=== PATIENT | female | born 1970 | race Caucasian/White ===

== ENCOUNTER 2021-05-05 18:48 | Inpatient (IN) ==
[2021-05-05] MEDS ORDERED: 0.9 % Sodium Chloride 1,000 ML IVC ONE (19:27)
[2021-05-05 20:23] LABS: Basophils # 0.1 K/mcL (0.0-0.2); Basophils % 0.4 %; Eosinophils # 0.1 K/mcL (0.0-0.6); Eosinophils % 0.6 %; Hematocrit 49.1 % (35.3-44.9); Hemoglobin 16.7 g/dL (11.5-15.4); Immature Granulocytes % 0.2 % (0-4); Lymphocytes # 1.4 K/mcL (0.6-4.6); Lymphocytes % 8.8 %; Mean Corpuscular Hemoglobin 31.6 pg (28.0-33.3); Mean Platelet Volume 10.9 fL (9.4-12.4); Monocytes # 0.9 K/mcL (0.0-1.3); Monocytes % 5.7 %; Neutrophils # 13.6 K/mcL (1.6-8.9); Platelet Count 211 K/mcL (140-400); Red Blood Count 5.28 M/mcL (3.82-4.97); Red Cell Distribution Width 12.4 % (11.5-14.5); Segmented Neutrophils % 84.3 %; White Blood Count 16.1 K/mcL (4.3-11.1)
[2021-05-05] MEDS ORDERED: Ipratropium/Albuterol Neb 3 ML IH ONE ×2 (20:40→22:07)
[2021-05-05] MEDS ORDERED: cefTRIAXone 1,000 MG in 0.9 % Sodium Chloride Mini Bag 100 ML IVPB ONE (20:40)
[2021-05-05] MEDS ORDERED: Azithromycin 500 MG in 0.9 % Sodium Chloride 250 ML IVPB ONE (20:40)
[2021-05-05 20:41] LABS: Alanine Aminotransferase 19 Units/L (7-52); Albumin 4.1 g/dL (3.5-5.7); Albumin/Globulin Ratio 1.3 (1.1-2.2); Alkaline Phosphatase 72 Units/L (34-104); Aspartate Amino Transferase 15 Units/L (13-39); BUN/Creatinine Ratio 13 (6-26); Bilirubin,Total 0.8 mg/dL (0.3-1.0); Blood Urea Nitrogen 11 mg/dL (6-20); Calcium 9.6 mg/dL (8.6-10.3); Carbon Dioxide 27 mEq/L (23-29); Chloride 101 mEq/L (98-107); Creatine Kinase 55 Units/L (30-223); Globulin 3.2 g/dL (2.4-3.5); Glucose 132 mg/dL (70-105); Lactate Dehydrogenase 189 Units/L (140-271); Osmolality,Calculated 283 (280-300); Potassium 4.1 mEq/L (3.5-5.1); Sodium 136 mEq/L (136-145); Total Protein 7.3 g/dL (6.4-8.9); eGFR For African Americans > 60 (> 60); eGFR For Non-African Americans > 60 (> 60)
[2021-05-05] MEDS ORDERED: Iopamidol - 370 500 ML MLS IVP ONE (20:51)
[2021-05-06] MEDS ORDERED: Ondansetron ODT 4 MG TAB.RAPDIS SL PRN (00:52)
[2021-05-06] MEDS ORDERED: Iopamidol - 370 500 ML MLS IVP ONE (00:52)
[2021-05-06] MEDS ORDERED: Naloxone 0.4 MG/ML INJ IVP PRN (00:52)
[2021-05-06] MEDS ORDERED: Ondansetron 4 MG/2 ML VIAL IVP PRN (00:52)
[2021-05-06] MEDS: 0.9 % Sodium Chloride 1,000 ML IVC SCH ×2 (01:29→13:31)
[2021-05-06] MEDS ORDERED: Ipratropium/Albuterol Neb 3 ML IH ONE ×2 (02:00)
[2021-05-06] MEDS: cefTRIAXone 1,000 MG in 0.9 % Sodium Chloride Mini Bag 100 ML IVPB SCH ×2 (05:19→17:30)
[2021-05-06] MEDS ORDERED: cefTRIAXone 1,000 MG in 0.9 % Sodium Chloride Mini Bag 100 ML IVPB SCH (06:00)
[2021-05-06] MEDS ORDERED: MethylPREDNISolone 40 MG/ML VIAL IVP ONE ×2 (07:00)
[2021-05-06 08:34] LABS: Adenovirus Not Detected (Not Detect); Bordetella Pertussis Not Detected (Not Detect); Chlamydophila pneumoniae Not Detected (Not Detect); Coronavirus 229E Not Detected (Not Detect); Coronavirus HKU1 Not Detected (Not Detect); Coronavirus NL63 Not Detected (Not Detect); Coronavirus OC43 Not Detected (Not Detect); Human Metapneumovirus Not Detected (Not Detect); Human Rhinovirus/Enterovirus Not Detected (Not Detect); Influenza A Subtype 2009 H1 Not Detected (Not Detect); Influenza B Not Detected (Not Detect); Mycoplasma pneumoniae Not Detected (Not Detect); Parainfluenza Virus 1 Not Detected (Not Detect); Parainfluenza Virus 2 Not Detected (Not Detect); Parainfluenza Virus 3 Not Detected (Not Detect); Parainfluenza Virus 4 Not Detected (Not Detect); Respiratory Syncytial Virus Not Detected (Not Detect); SARS-CoV-2 Not Detected (Not Detect)
[2021-05-06 08:40] LABS: Ferritin 122 ng/mL (10-120)
[2021-05-06] MEDS: Furosemide 20 MG TABLET PO SCH (08:50)
[2021-05-06] MEDS: Loratadine 10 MG TABLET PO SCH (08:50)
[2021-05-06] MEDS: Spironolactone 25 MG TABLET PO SCH (08:50)
[2021-05-06] MEDS: Ranolazine 500 MG TAB.ER.12H PO SCH ×2 (08:50→21:03)
[2021-05-06] MEDS: Aspirin 81 MG TAB.CHEW PO SCH (08:51)
[2021-05-06] MEDS ORDERED: Azithromycin 500 MG in 0.9 % Sodium Chloride 250 ML IVPB SCH (09:00)
[2021-05-06] MEDS: Azithromycin 500 MG in 0.9 % Sodium Chloride 250 ML IVPB SCH (09:07)
[2021-05-06] MEDS ORDERED: Perflutren Lipid Microsphere 1.3 ML in 0.9 % Sodium Chloride 8.7 ML IVP PRN (12:30)
[2021-05-06] MEDS: Ipratropium/Albuterol Neb 3 ML IH SCH ×2 (14:54→19:31)
[2021-05-06] MEDS: MethylPREDNISolone 40 MG/ML VIAL IVP SCH (17:28)
[2021-05-06] MEDS: Budesonide/Formoterol 160/4.5 1 PUFF INH IH SCH (19:31)
[2021-05-07] MEDS: MethylPREDNISolone 40 MG/ML VIAL IVP SCH ×3 (01:19→17:11)
[2021-05-07] MEDS: Ipratropium/Albuterol Neb 3 ML IH SCH ×4 (04:03→20:40)
[2021-05-07] MEDS: cefTRIAXone 1,000 MG in 0.9 % Sodium Chloride Mini Bag 100 ML IVPB SCH ×2 (05:02→17:10)
[2021-05-07 06:02] LABS: Hematocrit 44.7 % (35.3-44.9); Hemoglobin 14.2 g/dL (11.5-15.4); Mean Corpuscular HGB Conc 31.8 g/dL (31.6-35.5); Mean Corpuscular Hemoglobin 30.5 pg (28.0-33.3); Mean Corpuscular Volume 96.1 fL (83.0-100.0); Mean Platelet Volume 11.1 fL (9.4-12.4); Platelet Count 203 K/mcL (140-400); Red Blood Count 4.65 M/mcL (3.82-4.97); Red Cell Distribution Width 12.2 % (11.5-14.5); White Blood Count 15.9 K/mcL (4.3-11.1)
[2021-05-07] MEDS: *HR* Enoxaparin 40 MG/0.4 ML SYRINGE SQ SCH (06:06)
[2021-05-07 06:29] LABS: Alanine Aminotransferase 19 Units/L (7-52); Albumin 3.6 g/dL (3.5-5.7); Albumin/Globulin Ratio 1.4 (1.1-2.2); Alkaline Phosphatase 48 Units/L (34-104); Aspartate Amino Transferase 12 Units/L (13-39); BUN/Creatinine Ratio 25 (6-26); Bilirubin,Total 0.4 mg/dL (0.3-1.0); Blood Urea Nitrogen 15 mg/dL (6-20); Calcium 9.1 mg/dL (8.6-10.3); Carbon Dioxide 22 mEq/L (23-29); Chloride 103 mEq/L (98-107); Globulin 2.6 g/dL (2.4-3.5); Glucose 228 mg/dL (70-105); Magnesium 1.5 mg/dL (1.6-2.6); Osmolality,Calculated 284 (280-300); Potassium 4.2 mEq/L (3.5-5.1); Sodium 133 mEq/L (136-145); Total Protein 6.2 g/dL (6.4-8.9); eGFR For African Americans > 60 (> 60); eGFR For Non-African Americans > 60 (> 60)
[2021-05-07] MEDS: Furosemide 20 MG TABLET PO SCH (09:00)
[2021-05-07] MEDS: Loratadine 10 MG TABLET PO SCH (09:00)
[2021-05-07] MEDS: Ranolazine 500 MG TAB.ER.12H PO SCH ×2 (09:00→21:07)
[2021-05-07] MEDS: Aspirin 81 MG TAB.CHEW PO SCH (09:00)
[2021-05-07] MEDS: Spironolactone 25 MG TABLET PO SCH (09:00)
[2021-05-07] MEDS: Azithromycin 500 MG in 0.9 % Sodium Chloride 250 ML IVPB SCH (09:01)
[2021-05-07] MEDS: Budesonide/Formoterol 160/4.5 1 PUFF INH IH SCH ×2 (09:07→20:41)
[2021-05-07 10:27] LABS: Estimated Average Glucose 148 mg/dl; Hemoglobin A1C 6.8 %
[2021-05-08] MEDS: Ipratropium/Albuterol Neb 3 ML IH SCH ×2 (04:46→08:43)
[2021-05-08] MEDS: cefTRIAXone 1,000 MG in 0.9 % Sodium Chloride Mini Bag 100 ML IVPB SCH (04:53)
[2021-05-08] MEDS: *HR* Enoxaparin 40 MG/0.4 ML SYRINGE SQ SCH (04:54)
[2021-05-08] MEDS: MethylPREDNISolone 40 MG/ML VIAL IVP SCH (04:56)
[2021-05-08 07:30] VITALS: TEMP 97.3
[2021-05-08] MEDS: Budesonide/Formoterol 160/4.5 1 PUFF INH IH SCH (08:43)
[2021-05-08] MEDS: Azithromycin 500 MG in 0.9 % Sodium Chloride 250 ML IVPB SCH (08:55)
[2021-05-08] MEDS: Ranolazine 500 MG TAB.ER.12H PO SCH (09:00)
[2021-05-08] MEDS: Aspirin 81 MG TAB.CHEW PO SCH (09:00)
[2021-05-08] MEDS: Loratadine 10 MG TABLET PO SCH (09:00)
[2021-05-08] MEDS: Furosemide 20 MG TABLET PO SCH (09:00)
[2021-05-08] MEDS: Spironolactone 25 MG TABLET PO SCH (09:01)
[2021-05-08 11:32] VITALS: BP 140/85; PULSE 93; RESP 17
[2021-05-08 12:11] VITALS: O2SAT 100
== END 2021-05-08 14:00 | disposition home or self-care (01) ==
LOC: EMEROOGRE 18:48 → INTOOBSV 05-06 00:22 → INPGRE 05-06 00:22
PROVIDERS: ADMIT Internal Medicine; ATTEND Internal Medicine